=== PATIENT | female | born 1935 | race Caucasian/White ===

== ENCOUNTER 2018-02-10 05:19 | Inpatient (IN) | payer MEDICARE, MEDICAID ==
[~2018-02-10] VITALS: Ht 172.7 cm; Wt 45.5 kg
[~2018-02-10 05:19] MED LIST: APIX2.5T PO; ESOM40CA30 PO; FURO-150 PO; HYDR-565 PO; IRBE150T51 PO
[2018-02-10] MEDS: albuterol 2.5 MG/3 ML nebule CONTNEB PRN ×2 (05:39→10:42)
[2018-02-10 05:46] LABS: BASOPHILS % (AUTO) 0.2 % (0-1); EOSINOPHILS # (AUTO) 0.1 X10'3 (0-0.9); HEMATOCRIT 36.5 % (35.0-45.0); HEMOGLOBIN 12.2 g/dl (12.0-16.0); LYMPHOCYTES # (AUTO) 1.2 X10'3 (1.1-4.8); MEAN CORPUSCULAR HEMOGLOBIN 31.7 PG (27.0-31.0); MEAN CORPUSCULAR HGB CONC 33.5 % (33.0-36.5); MEAN CORPUSCULAR VOLUME 94.6 FL (78-98); MEAN PLATELET VOLUME 8.5 FL (7.4-10.4); MONOCYTES # (AUTO) 0.8 X10'3 (0-0.9); MONOCYTES % (AUTO) 7.7 % (2-12); NEUTROPHILS # (AUTO) 8.9 X10'3 (1.8-7.7); NEUTROPHILS % (AUTO) 80.1 % (42-75); PLATELET COUNT 258 X10'3 (140-440); RED BLOOD COUNT 3.86 X10'6 (4.20-5.60); RED CELL DISTRIBUTION WIDTH 13.4 % (11.5-14.5); WHITE BLOOD COUNT 11.1 X10'3 (4.5-11.0)
[2018-02-10 06:00] LABS: D-DIMER 1.43 MG/L FEU (0-0.50); INR 1.2 INR; PARTIAL THROMBOPLASTIN TIME 27 SECONDS (22-32); PROTHROMBIN TIME 12.1 SECONDS (9.0-12.0)
[2018-02-10] MEDS ORDERED: furosemide 10 MG/1 ML 10ml inj IV ONE (06:00)
[2018-02-10] MEDS ORDERED: nitroGLYCERIN-Tridil 50MG/D5W 250 ML IV PRN (06:00)
[2018-02-10 06:08] LABS: ALANINE AMINOTRANSFERASE 43 U/L (12-78); ALBUMIN 3.6 G/DL (3.4-5.0); ALBUMIN/GLOBULIN RATIO 0.9 (1.1-1.5); ALKALINE PHOSPHATASE 121 IU/L (46-116); ANION GAP 12 (8-16); ASPARTATE AMINO TRANSFERASE 48 U/L (10-37); BILIRUBIN,TOTAL 0.8 MG/DL (0.1-1.0); BLOOD UREA NITROGEN 14 MG/DL (7-18); BUN/CREATININE RATIO 16.5 (6.6-38.0); CALCIUM 9.2 MG/DL (8.5-10.1); CHLORIDE 90 MMOL/L (99-107); CREATININE 0.85 MG/DL (0.40-0.90); GLUCOSE 188 MG/DL (70-104); POTASSIUM 3.8 MMOL/L (3.5-5.1); SODIUM 127 MMOL/L (135-145); TOTAL PROTEIN 7.6 G/DL (6.4-8.2); eGFR 64 ML/MIN
[2018-02-10 07:20] LABS: ABG BASE EXCESS -2.7 mmol/L (-2.0-3.0); ABG HCO3 20.3 mmol/L (22.0-26.0); ABG OXYGEN SATURATION 97.9 % (95-98); ABG PCO2 (T) 30.1 mmHg (32.0-45.0); ABG PH (T) 7.447 (7.350-7.450); ABG PO2 (T) 114.3 mmHg (83-108); ALLEN'S TEST Positive; FCOHb 0.4 % (0.5-1.5); FO2Hb 97.5 % (94-100); MINUTE VOLUME 17 L/min; RESPIRATORY RATE 14 b/min; RESPIRATORY RATE (OBSERVED) 23 b/min; TOTAL HEMOGLOBIN 12.6 G/dl (12.0-16.0)
[2018-02-10] MEDS ORDERED: acetaminophen 325mg tablet PO PRN (09:30)
[2018-02-10] MEDS ORDERED: morphine 4 MG/ML inj SYRINge IV PRN (09:30)
[2018-02-10] MEDS ORDERED: potassium Cl 40MEQ/NS 500ml 500 ML IV PRN ×2 (09:30)
[2018-02-10] MEDS ORDERED: magnesium 4gm in 100ml NS 100 ML IV PRN (09:30)
[2018-02-10] MEDS ORDERED: magnesium 2GM in 50ml NS 50 ML IV PRN (09:30)
[2018-02-10] MEDS ORDERED: magnesium Cl slow-release 64mg tablet PO PRN (09:30)
[2018-02-10] MEDS ORDERED: ondansetron/PF 4mg/2ml inj IV PRN (09:30)
[2018-02-10] MEDS ORDERED: magnesium hydroxide 30ml (MOM) UD suspension PO PRN (09:30)
[2018-02-10] MEDS ORDERED: potassium Cl 20 mEq SR tablet PO PRN (09:30)
[2018-02-10] MEDS ORDERED: mag hydrox/Alum hydrox/simeth 30ml oral suspension PO PRN (09:30)
[2018-02-10] MEDS ORDERED: cloNIDine 0.1 mg tablet PO PRN (09:40)
[2018-02-10] MEDS: nitroGLYCERIN 1gm ointment UD TP SCH ×2 (10:01→16:00)
[2018-02-10 10:56] LABS: ABG BASE EXCESS 0.5 mmol/L (-2.0-3.0); ABG HCO3 22.7 mmol/L (22.0-26.0); ABG OXYGEN SATURATION 93.6 % (95-98); ABG PCO2 (T) 29.4 mmHg (32.0-45.0); ABG PH (T) 7.505 (7.350-7.450); ABG PO2 (T) 70.9 mmHg (83-108); ALLEN'S TEST Positive; FCOHb 0.7 % (0.5-1.5); FLOW 3 L/min; FMetHb 0.3 % (0.3-1.12); FO2Hb 92.7 % (94-100); TOTAL HEMOGLOBIN 12.7 G/dl (12.0-16.0)
[2018-02-10] MEDS ORDERED: HYDROcodone/acetaminophen 10/325mg tab PO SCH (13:46)
[2018-02-10 19:45] VITALS: BP 119/73
[2018-02-10] MEDS ORDERED: LYR25C PO (20:49)
[2018-02-10] MEDS: HYDROcodone/acetaminophen 10/325mg tab PO PRN (20:56)
[2018-02-10] MEDS: apixaban 2.5mg tablet PO SCH (20:56)
[2018-02-10] MEDS: furosemide 10 MG/1 ML 10ml inj IV SCH (20:56)
[2018-02-10 23:00] VITALS: BP 122/68
[2018-02-11] MEDS: nitroGLYCERIN 1gm ointment UD TP SCH ×3 (00:15→16:40)
[2018-02-11] MEDS ORDERED: LYR25C PO (00:55)
[2018-02-11] MEDS ORDERED: METO-411 PO (00:55)
[2018-02-11 03:00] VITALS: BP 112/71
[2018-02-11 06:13] LABS: ALBUMIN 3.1 G/DL (3.4-5.0); ANION GAP 9 (8-16); BLOOD UREA NITROGEN 12 MG/DL (7-18); BUN/CREATININE RATIO 15.2 (6.6-38.0); CALCIUM 8.6 MG/DL (8.5-10.1); CHLORIDE 92 MMOL/L (99-107); CREATININE 0.79 MG/DL (0.40-0.90); GLUCOSE 101 MG/DL (70-104); MAGNESIUM 1.6 MG/DL (1.5-2.4); SODIUM 131 MMOL/L (135-145); TOTAL CARBON DIOXIDE 29.9 MMOL/L (24-32); eGFR 69 ML/MIN
[2018-02-11 06:16] LABS: POTASSIUM 2.8 MMOL/L (3.5-5.1)
[2018-02-11 06:24] LABS: BASOPHILS % (AUTO) 0.2 % (0-1); EOSINOPHILS # (AUTO) 0.1 X10'3 (0-0.9); EOSINOPHILS % (AUTO) 1.1 % (0-6); HEMATOCRIT 31.1 % (35.0-45.0); HEMOGLOBIN 10.4 g/dl (12.0-16.0); LYMPHOCYTES # (AUTO) 1.2 X10'3 (1.1-4.8); LYMPHOCYTES % (AUTO) 18.7 % (21-51); MEAN CORPUSCULAR HEMOGLOBIN 31.5 PG (27.0-31.0); MEAN CORPUSCULAR HGB CONC 33.4 % (33.0-36.5); MEAN CORPUSCULAR VOLUME 94.4 FL (78-98); MEAN PLATELET VOLUME 8.5 FL (7.4-10.4); MONOCYTES # (AUTO) 0.7 X10'3 (0-0.9); MONOCYTES % (AUTO) 10.1 % (2-12); NEUTROPHILS # (AUTO) 4.5 X10'3 (1.8-7.7); NEUTROPHILS % (AUTO) 69.9 % (42-75); PLATELET COUNT 207 X10'3 (140-440); RED BLOOD COUNT 3.29 X10'6 (4.20-5.60); RED CELL DISTRIBUTION WIDTH 13.8 % (11.5-14.5); WHITE BLOOD COUNT 6.5 X10'3 (4.5-11.0)
[2018-02-11] MEDS: apixaban 2.5mg tablet PO SCH ×2 (07:34→20:15)
[2018-02-11] MEDS: losartan 50mg tablet PO SCH (07:34)
[2018-02-11] MEDS: HYDROcodone/acetaminophen 10/325mg tab PO PRN ×4 (07:35→21:52)
[2018-02-11] MEDS: furosemide 10 MG/1 ML 10ml inj IV SCH ×2 (07:38→20:15)
[2018-02-11] MEDS: potassium Cl 20 mEq SR tablet PO PRN ×2 (07:58→13:03)
[2018-02-11] MEDS: K and/or MAG REPLACEMENT MC SCH (08:00)
[2018-02-11 11:00] VITALS: BP 147/82
[2018-02-11 15:00] VITALS: BP 143/92
[2018-02-11] MEDS: potassium Cl 20 mEq SR tablet PO SCH (17:42)
[2018-02-11 19:00] VITALS: BP 138/97
[2018-02-11] MEDS ORDERED: pregabalin 25mg capsule PO SCH (21:00)
[2018-02-11 23:00] VITALS: BP 148/93
[2018-02-12] MEDS: nitroGLYCERIN 1gm ointment UD TP SCH ×2 (00:05→08:59)
[2018-02-12 03:00] VITALS: BP 127/78
[2018-02-12 05:46] LABS: ALBUMIN 3.1 G/DL (3.4-5.0); ANION GAP 9 (8-16); BLOOD UREA NITROGEN 14 MG/DL (7-18); BUN/CREATININE RATIO 17.1 (6.6-38.0); CALCIUM 8.8 MG/DL (8.5-10.1); CHLORIDE 95 MMOL/L (99-107); CREATININE 0.82 MG/DL (0.40-0.90); GLUCOSE 95 MG/DL (70-104); MAGNESIUM 1.7 MG/DL (1.5-2.4); SODIUM 132 MMOL/L (135-145); eGFR 66 ML/MIN
[2018-02-12 06:00] VITALS: BP 124/84
[2018-02-12] MEDS ORDERED: metoprolol succinate 25mg (24-HOUR) SR. Tablet PO SCH (08:00)
[2018-02-12] MEDS: K and/or MAG REPLACEMENT MC SCH (08:00)
[2018-02-12] MEDS: losartan 50mg tablet PO SCH (08:58)
[2018-02-12] MEDS: potassium Cl 20 mEq SR tablet PO SCH (08:59)
[2018-02-12] MEDS: furosemide 10 MG/1 ML 10ml inj IV SCH (08:59)
[2018-02-12] MEDS: apixaban 2.5mg tablet PO SCH (08:59)
[2018-02-12] MEDS: HYDROcodone/acetaminophen 10/325mg tab PO PRN (10:30)
[2018-02-12 11:00] VITALS: BP 124/81
[2018-02-12] MEDS ORDERED: POTA20TA19 PO (11:19)
[2018-02-12] MEDS ORDERED: DILT120C62 PO (11:19)
[2018-02-12] MEDS ORDERED: diltiazem CD 120mg capsule (once-daily) PO SCH (11:35)
== END 2018-02-12 14:15 | disposition home health service (06) | DRG 189 ==
LOC: ER 05:20 → ED HOLD 09:27 → EDBEDREQ 18:33 → PCU 3S 19:45
PROVIDERS: ADMIT Internal Medicine; ATTEND Internal Medicine
PROC: 5A09357 Assistance with Respiratory Ventilation, Less than 24 Consecutive Hours, Continuous Positive Airway Pressure (ICD-10-PCS; principal; 2018-02-10)
DX: J96.21 Acute and chronic respiratory failure with hypoxia (principal); E43 Unspecified severe protein-calorie malnutrition; I50.23 Acute on chronic systolic (congestive) heart failure; E86.1 Hypovolemia; I48.91 Unspecified atrial fibrillation; E87.1 Hypo-osmolality and hyponatremia; Z68.1 Body mass index [BMI] 19.9 or less, adult; I11.0 Hypertensive heart disease with heart failure; Z79.01 Long term (current) use of anticoagulants; E87.6 Hypokalemia; G89.29 Other chronic pain; T50.1X5A Adverse effect of loop [high-ceiling] diuretics, initial encounter; Z95.810 Presence of automatic (implantable) cardiac defibrillator; Z88.6 Allergy status to analgesic agent; Z88.8 Allergy status to other drugs, medicaments and biological substances; Z79.899 Other long term (current) drug therapy; Y92.89 Other specified places as the place of occurrence of the external cause
CPT/HCPCS: 36415; 36600; 71045; 80048; 80053; 82803; 83605; 83735; 83880; 84132; 84484; 85018; 85025; 85379; 85610; 85730; 87040; 87070; 93005; 94640; 94660; 94760; 96365; 96375; 99291; A6257; J1940; J3490

== ENCOUNTER 2019-07-23 11:04 | Inpatient (IN) | payer MEDICARE, MEDICAID ==
[~2019-07-23] VITALS: Ht 165.1 cm; Wt 37.3 kg
[~2019-07-23 11:04] MED LIST changes: +DILT120C62 PO; -ESOM40CA30 PO; +ESOM40CA49 PO; +HYDR-4353 PO; -HYDR-565 PO; +LYR25C PO; +METO-411 PO
[2019-07-23 12:51] LABS: BASOPHILS % (AUTO) 0.1 % (0-1); EOSINOPHILS % (AUTO) 0.1 % (0-6); HEMATOCRIT 36.2 % (35.0-45.0); HEMOGLOBIN 11.9 g/dl (12.0-16.0); LYMPHOCYTES # (AUTO) 0.8 X10'3 (1.1-4.8); LYMPHOCYTES % (AUTO) 6.6 % (21-51); MEAN CORPUSCULAR HEMOGLOBIN 34.2 PG (27.0-31.0); MEAN CORPUSCULAR HGB CONC 32.9 g/dL (33.0-36.5); MEAN CORPUSCULAR VOLUME 103.9 FL (78-98); MEAN PLATELET VOLUME 8.9 FL (7.4-10.4); MONOCYTES # (AUTO) 0.6 X10'3 (0-0.9); MONOCYTES % (AUTO) 4.7 % (2-12); NEUTROPHILS # (AUTO) 10.7 X10'3 (1.8-7.7); NEUTROPHILS % (AUTO) 88.5 % (42-75); PLATELET COUNT 258 X10'3 (140-440); RED BLOOD COUNT 3.48 X10'6 (4.20-5.60); WHITE BLOOD COUNT 12.1 X10'3 (4.5-11.0)
[2019-07-23 12:59] LABS: ALANINE AMINOTRANSFERASE 8 U/L (12-78); ALBUMIN/GLOBULIN RATIO 0.6 (1.1-1.5); ALKALINE PHOSPHATASE 92 IU/L (46-116); ANION GAP 9 (8-16); ASPARTATE AMINO TRANSFERASE 13 U/L (10-37); BILIRUBIN,TOTAL 0.7 MG/DL (0.1-1.0); BLOOD UREA NITROGEN 37 MG/DL (7-18); BUN/CREATININE RATIO 24.3 (6.6-38.0); CALCIUM 7.6 MG/DL (8.5-10.1); CHLORIDE 102 MMOL/L (99-107); CREATININE 1.52 MG/DL (0.40-0.90); GLUCOSE 156 MG/DL (70-104); POTASSIUM 3.3 MMOL/L (3.5-5.1); SODIUM 140 MMOL/L (135-145); TOTAL CARBON DIOXIDE 28.6 MMOL/L (24-32); TOTAL PROTEIN 5.2 G/DL (6.4-8.2); eGFR 32 ML/MIN
[2019-07-23 13:03] LABS: PARTIAL THROMBOPLASTIN TIME 39 SECONDS (22-32)
[2019-07-23 13:08] LABS: MAGNESIUM 1.6 MG/DL (1.5-2.4)
[2019-07-23] MEDS ORDERED: POTA10TA10 PO (13:56)
--- NOTE | 2019-07-23 14:01 | NUR ---
pt out to ct via ivania with taxation inspector
[2019-07-23] MEDS ORDERED: CefTRIAXone 2gm/D5W 50ml 50 ML IV ONE (14:05)
[2019-07-23] MEDS ORDERED: magnesium 2GM in 50ml NS 50 ML IV ONE (14:05)
[2019-07-23] MEDS ORDERED: normal saline 1000ML IV soln IVB ONE (14:05)
[2019-07-23] MEDS ORDERED: magnesium 4gm in 100ml NS 100 ML IV PRN (14:55)
[2019-07-23] MEDS ORDERED: magnesium Cl slow-release 64mg tablet PO PRN (14:55)
[2019-07-23] MEDS ORDERED: mag hydrox/Alum hydrox/simeth 30ml oral suspension PO PRN (14:55)
[2019-07-23] MEDS ORDERED: ondansetron/PF 4mg/2ml inj IV PRN (14:55)
[2019-07-23] MEDS ORDERED: docusate sod 100mg capsule PO PRN (14:55)
[2019-07-23] MEDS ORDERED: potassium CL 10mEq/100ml bag 100 ML IV PRN ×2 (14:55)
[2019-07-23] MEDS ORDERED: acetaminophen 325mg tablet PO PRN (14:55)
[2019-07-23] MEDS ORDERED: ipratropium/albuterol 3ml nebule NEB PRN (14:55)
[2019-07-23] MEDS ORDERED: magnesium 2GM in 50ml NS 50 ML IV PRN (14:55)
[2019-07-23] MEDS ORDERED: potassium Cl 20 mEq SR tablet PO PRN ×2 (14:55)
[2019-07-23 15:10] LABS: CLARITY,URINE CLEAR (Clear); COLOR,URINE YELLOW (Yellow); GLUCOSE, URINE NEGATIVE (Neg); KETONES,URINE NEGATIVE (Neg); LEUKOCYTE ESTERASE ,URINE NEGATIVE (Neg); NITRITES, URINE NEGATIVE (Neg); OCCULT BLOOD,URINE NEGATIVE (Neg); PH,URINE 5.5 (4.8-8.0); PROTEIN,URINE NEGATIVE (Neg); UROBILINOGEN,URINE 0.2 E.U/dL (0.2-1.0)
[2019-07-23 15:11] LABS: UA COLLECTION TYPE STRAIGHT CATH
[2019-07-23] MEDS: CefTRIAXone/D5W-Rocephin 1gm 50 ML IV SCH (16:02)
[2019-07-23] MEDS: ipratropium/albuterol 3ml nebule NEB SCH ×2 (16:30→21:03)
--- NOTE | 2019-07-23 17:06 | NUR ---
Received report from CHRISTINE Benitez. Patient will be going to room 350 A.
--- NOTE | 2019-07-23 17:30 | NUR ---
Patient to room 350A. Patient alert and very painful at this time. No pain medications ordered. MD paged for pain management. Patient tucked into bed, call light in reach, nonslip socks on patient, BLL. Daughter bedside. Phone number in [facility].
[2019-07-23] MEDS ORDERED: HYDROcodone/acetaminophen 10/325mg tab PO PRN (18:10)
--- NOTE | 2019-07-23 18:10 | NUR ---
Problems reprioritized. Patient report given, questions answered & plan of care reviewed with CHRISTINE Rodriguez.
[2019-07-23] MEDS: HYDROcodone/acetaminophen 5mg/325mg tablet PO PRN (18:14)
[2019-07-23 19:00] VITALS: BP 110/53
[2019-07-23] MEDS: furosemide 20MG tablet PO SCH (20:47)
[2019-07-23] MEDS: lactobacillus rhamnosus 10,000 MMU CELLS/CAPSULE PO SCH (20:47)
[2019-07-23] MEDS: apixaban 2.5mg tablet PO SCH (20:47)
[2019-07-24] MEDS: HYDROcodone/acetaminophen 5mg/325mg tablet PO PRN (06:08)
[2019-07-24 06:10] LABS: BASOPHILS % (AUTO) 0.2 % (0-1); EOSINOPHILS % (AUTO) 0.1 % (0-6); HEMATOCRIT 39.6 % (35.0-45.0); HEMOGLOBIN 13.2 g/dl (12.0-16.0); LYMPHOCYTES # (AUTO) 1.1 X10'3 (1.1-4.8); LYMPHOCYTES % (AUTO) 11.5 % (21-51); MEAN CORPUSCULAR HEMOGLOBIN 34.6 PG (27.0-31.0); MEAN CORPUSCULAR HGB CONC 33.5 g/dL (33.0-36.5); MEAN CORPUSCULAR VOLUME 103.3 FL (78-98); MEAN PLATELET VOLUME 9.3 FL (7.4-10.4); MONOCYTES # (AUTO) 0.6 X10'3 (0-0.9); MONOCYTES % (AUTO) 6.1 % (2-12); NEUTROPHILS # (AUTO) 8.1 X10'3 (1.8-7.7); NEUTROPHILS % (AUTO) 82.1 % (42-75); PLATELET COUNT 271 X10'3 (140-440); RED BLOOD COUNT 3.83 X10'6 (4.20-5.60); RED CELL DISTRIBUTION WIDTH 15.2 % (11.5-14.5); WHITE BLOOD COUNT 9.9 X10'3 (4.5-11.0)
[2019-07-24 06:22] LABS: ALANINE AMINOTRANSFERASE 11 U/L (12-78); ALBUMIN 2.2 G/DL (3.4-5.0); ALBUMIN/GLOBULIN RATIO 0.6 (1.1-1.5); ALKALINE PHOSPHATASE 101 IU/L (46-116); ANION GAP 10 (8-16); ASPARTATE AMINO TRANSFERASE 26 U/L (10-37); BILIRUBIN,TOTAL 0.4 MG/DL (0.1-1.0); BLOOD UREA NITROGEN 36 MG/DL (7-18); BUN/CREATININE RATIO 26.7 (6.6-38.0); CALCIUM 8.1 MG/DL (8.5-10.1); CHLORIDE 103 MMOL/L (99-107); CHOL/HDL RATIO 1.9 (0.00-4.99); CHOLESTEROL 131 MG/DL (0-200); CREATININE 1.35 MG/DL (0.40-0.90); GLUCOSE 96 MG/DL (70-104); HDL CHOLESTEROL 68 MG/DL (35-60); LDL CHOLESTEROL 26 MG/DL (50-100); MAGNESIUM 2.1 MG/DL (1.5-2.4); SODIUM 142 MMOL/L (135-145); TOTAL CARBON DIOXIDE 29.1 MMOL/L (24-32); TOTAL PROTEIN 5.9 G/DL (6.4-8.2); TRIGLYCERIDES 112 MG/DL (20-135); eGFR 37 ML/MIN
[2019-07-24 06:44] LABS: POTASSIUM 2.8 MMOL/L (3.5-5.1)
--- NOTE | 2019-07-24 06:50 | NUR ---
Patient in room [facility] 350. I have received report from CHRISTINE Rodriguez and had the opportunity to ask questions and assume patient care.
--- NOTE | 2019-07-24 06:53 | NUR ---
Problems reprioritized. Patient report given, questions answered & plan of care reviewed with SAMANTHA. Addendum: 07/24/19 at 0654 by Bartolome Lovett RN Amended: Links added.
[2019-07-24 07:00] VITALS: BP 105/52
--- NOTE | 2019-07-24 07:15 | NUR ---
Notified Dr. Tinsley of patient's critical K 2.8-MD aware. PT has oral replacements ordered; will replace per protocol.
[2019-07-24] MEDS ORDERED: K and/or MAG REPLACEMENT MC SCH (08:00)
[2019-07-24] MEDS ORDERED: IRBESARTAN PO SCH (08:00)
[2019-07-24] MEDS: furosemide 20MG tablet PO SCH ×2 (08:03→21:58)
[2019-07-24] MEDS: losartan 50mg tablet PO SCH (08:03)
[2019-07-24] MEDS: lactobacillus rhamnosus 10,000 MMU CELLS/CAPSULE PO SCH ×2 (08:03→21:59)
[2019-07-24] MEDS: apixaban 2.5mg tablet PO SCH ×2 (08:04→21:57)
[2019-07-24] MEDS: CefTRIAXone/D5W-Rocephin 1gm 50 ML IV SCH (08:39)
[2019-07-24] MEDS ORDERED: Potassium Cl 40 MEQ in NS 500 ML IV ONE (08:50)
--- NOTE | 2019-07-24 09:18 | NUR ---
unable o get sp02 on 2lpm 02 Addendum: 07/24/19 at 1719 by Julia Perez RT Amended: Links added.
[2019-07-24] MEDS: ipratropium/albuterol 3ml nebule NEB SCH ×3 (09:29→20:21)
[2019-07-24] MEDS ORDERED: pneumococcal 23-VAL P-sac vacc 25 mcg/0.5ml vial IMVAC ONE (10:00)
--- NOTE | 2019-07-24 10:59 | NUR ---
Dr Tinsley called and asked me to retake patients blood pressure. Per Automatic cuff patients VS as follows, 36.2C temp, HR 128 BP 79/59 SPO2 98% 2L RR 16 Pain 3/10 taken with Small cuff. Manual 70/50, retook with automatic cuff 86/56 ( map 66) left arm HR 92. Per Dr Tinsley keep an eye on patient please and he has requested a consult on patient with Aminata Reese. Primary RN Tena armendariz and batch freezerCHRISTINE armendariz
[2019-07-24 11:00] VITALS: BP 91/52
--- NOTE | 2019-07-24 15:11 | NUR ---
PRESSURE ULCER EDUCATION: DEFINITION: A pressure ulcer is an area of skin that breaks down when you stay in one position too long. The constant pressure against the skin reduces the blood flow to that area and the affected tissue dies. CAUSES: "Being bedridden or in a wheelchair "Fragile skin "Having a chronic condition, such as diabetes or vascular disease "Inability to move certain parts of your body without assistance "Older age "Incontinence of urine or stool SYMPTOMS: "A reddened area that DOES NOT turn white when pressed on - this can be the beginning of a pressure ulcer "A blister, deep sore or a crater - these can be advanced pressure ulcers FIRST AID: "Relieve the pressure on this area "Keep the area clean and dry "Call your primary doctor if you see any of the above symptoms "DO NOT massage the area "DO NOT use a donut shaped or ring shaped pillow- these actually interfere with the blood flow and cause complications PREVENTION: "Check for pressure ulcers everyday "Change position at least every two hours to relieve pressure "Use items that help relieve pressure- pillows, sheepskin, foam padding, and powders. "Keep skin clean and dry "Eat healthy well balanced meals "Exercise daily IF YOU SEE ANY OF THESE SYMPTOMS WHILE IN THE HOSPITAL - TELL YOUR NURSE IMMEDIATELY. IF YOU SEE ANY OF THESE SYMPTOMS WHILE AT HOME OR HAVE ANY QUESTIONS OR CONCERNS ABOUT PRESSURE ULCERS - CALL YOUR PRIMARY DOCTOR IMMEDIATELY. Addendum: 07/24/19 at 1511 by Ida Stahl RN Amended: Links added.
--- NOTE | 2019-07-24 15:11 | NUR ---
unable to get sp02 on 2lpm 02 Addendum: 07/24/19 at 1719 by Julia Perez RT Amended: Links added.
--- NOTE | 2019-07-24 16:10 | NUR ---
Malnutrition consult: Pt with no significant reliable wt hx as most recent scaled wt is 61.6 kg taken September 2014 using a standing scale. Current documented wt is 37.27 kg taken with gurney scale resulting in extremely low BMI of 13.7. Multiple attempted visits with patient at bedside however pt unavailable. Pt currently on heart healthy diet with documented 25% PO intake x 1 meal not meeting nutrient needs. Per H&P pt reports low appetite for approximately 3 weeks. Likely pt with suboptimal PO intake [employer]OLDING [employer]. Per ED report pt appears emaciated. Pt presents with no edema however severe weakness. Pt currently meets criteria for malnutrition, MD notified. Recommend Ensure Enlive TID to provide additional kcal/protein, to be sent pending MD verification in [place]. Pt admit with generalized weakness possibly secondary to infection with infiltrates seen in left lower lobe on chest x-ray and a mildly elevated lactic acid per H&P. Pt with low Osorio score of 12, per [facility] notes pt with DTI to coccyx with a small open area d/t moisture damage as pt is incontinent of urine and stool at this time. LBM 9/. Will continue to follow. Recommendations: 1) Continue heart healthy diet 2) Ensure Enlive TID, pending MD verification 3) Encourage PO intake 4) Routine bowel care 5) Wt per rx Addendum: 07/24/19 at [address] Amended: Links added.
[2019-07-24] MEDS: Potassium Cl inj 20 MEQ in normal saline 1000ml 990 ML IV SCH (17:29)
[2019-07-24] MEDS ORDERED: lactose-reduced food (Ensure Enlive) - 237ml bottle PO SCH (18:00)
[2019-07-24 18:30] VITALS: BP 98/66
--- NOTE | 2019-07-24 18:52 | NUR ---
Problems reprioritized. Patient report given, questions answered & plan of care reviewed with CHRISTINE Rodriguez.
[2019-07-24] MEDS ORDERED: LORazepam 0.5 MG tablet PO ONE (19:00)
[2019-07-24 20:00] VITALS: BP 98/66
[2019-07-24 22:30] VITALS: BP 83/64
--- NOTE | 2019-07-24 22:30 | NUR ---
DR. PASTRANA NOTIFIED MRS. REAL IS IN [place] @ 163. DAVID VITALY STATED THE PLAN WAS TO GENTLY HYDRATE HER. DR. PASTRANA ORDERED NS 500CC/ 2HRS PLUS CARDIZEM 30 MG PO ONCE. RATE CORRECTED NICELY TO 110's
[2019-07-24] MEDS ORDERED: normal saline 500ml IV soln 500 ML IV ONE (22:40)
[2019-07-24] MEDS ORDERED: diltiazem 30mg tablet PO ONE (22:40)
[2019-07-25] VITALS: BP 83/64
[2019-07-25] MEDS: Potassium Cl inj 20 MEQ in normal saline 1000ml 990 ML IV SCH (01:16)
[2019-07-25 05:11] LABS: HEMATOCRIT 40.5 % (35.0-45.0); HEMOGLOBIN 13.3 g/dl (12.0-16.0); MEAN CORPUSCULAR HEMOGLOBIN 34.4 PG (27.0-31.0); MEAN CORPUSCULAR HGB CONC 32.7 g/dL (33.0-36.5); MEAN CORPUSCULAR VOLUME 105.3 FL (78-98); MEAN PLATELET VOLUME 9.6 FL (7.4-10.4); PLATELET COUNT 137 X10'3 (140-440); RED BLOOD COUNT 3.85 X10'6 (4.20-5.60); RED CELL DISTRIBUTION WIDTH 15.9 % (11.5-14.5)
--- NOTE | 2019-07-25 06:30 | NUR ---
Patient in room [facility] 350. I have received report from CHRISTINE Rodriguez and had the opportunity to ask questions and assume patient care.
[2019-07-25 06:47] LABS: PLATELET ESTIMATE DECREASED; TOTAL CELLS COUNTED 100
[2019-07-25 06:48] LABS: BURR CELLS 1+
--- NOTE | 2019-07-25 06:50 | NUR ---
Problems reprioritized. Patient report given, questions answered & plan of care reviewed with SAMANTHA. Addendum: 07/25/19 at 0651 by Bartolome Lovett RN Amended: Links added.
[2019-07-25 07:13] LABS: ALANINE AMINOTRANSFERASE 77 U/L (12-78); ALBUMIN 1.9 G/DL (3.4-5.0); ALBUMIN/GLOBULIN RATIO 0.6 (1.1-1.5); ALKALINE PHOSPHATASE 104 IU/L (46-116); ANION GAP 17 (8-16); ASPARTATE AMINO TRANSFERASE 199 U/L (10-37); BILIRUBIN,TOTAL 0.7 MG/DL (0.1-1.0); BLOOD UREA NITROGEN 39 MG/DL (7-18); BUN/CREATININE RATIO 19.7 (6.6-38.0); CALCIUM 8.1 MG/DL (8.5-10.1); CHLORIDE 106 MMOL/L (99-107); CREATININE 1.98 MG/DL (0.40-0.90); GLUCOSE 108 MG/DL (70-104); MAGNESIUM 2.4 MG/DL (1.5-2.4); SODIUM 143 MMOL/L (135-145); TOTAL CARBON DIOXIDE 20.1 MMOL/L (24-32); TOTAL PROTEIN 5.3 G/DL (6.4-8.2); eGFR 24 ML/MIN
[2019-07-25 07:16] LABS: POTASSIUM 6.2 MMOL/L (3.5-5.1)
--- NOTE | 2019-07-25 07:19 | NUR ---
PAGED Dr. Tinsley notifying him of patient's critical K of 6.2. MD aware, awaiting further orders.
[2019-07-25] MEDS ORDERED: albuterol 2.5 MG/3 ML nebule NEB STA (07:34)
[2019-07-25] MEDS ORDERED: calcium chloride 100 MG/1 ML inj IV ONE (07:35)
[2019-07-25] MEDS ORDERED: sodium bicarbonate (8.4%) 1 mEq/ml syringe IV ONE (07:35)
[2019-07-25] MEDS ORDERED: insulin regular, human 10 units/0.1 ml syringe SQ ONE ×2 (07:35→08:45)
[2019-07-25] MEDS ORDERED: dextrose 50%-water 50ml dispensing syringe IV ONE (07:35)
[2019-07-25 08:00] VITALS: BP 125/90
[2019-07-25] MEDS: losartan 50mg tablet PO SCH (08:00)
[2019-07-25] MEDS: furosemide 20MG tablet PO SCH ×2 (08:00→20:00)
[2019-07-25] MEDS: apixaban 2.5mg tablet PO SCH ×2 (08:00→20:00)
[2019-07-25] MEDS: lactobacillus rhamnosus 10,000 MMU CELLS/CAPSULE PO SCH ×2 (08:00→20:00)
[2019-07-25] MEDS: CefTRIAXone/D5W-Rocephin 1gm 50 ML IV SCH (08:00)
--- NOTE | 2019-07-25 08:00 | NUR ---
Patient BP reading high, upon re-check BP now 120/90. Called telemetry chamber to check HR and rhythm, telephoto installer reports HR in 90s-100s. Daughter expressing to me concerns about patient feeling too cold. Called Dr. Tinsley to clarify orders for pt's high potassium and express to him concerns about his pt. Asked if he would like to come assess his patient. states "he is admitting a patient but will be up as soon as done."
[2019-07-25] MEDS ORDERED: calcium chloride inj. 1,000 MG in normal saline 100ml IV soln 100 ML IV ONE (08:20)
[2019-07-25] MEDS: ipratropium/albuterol 3ml nebule NEB SCH ×3 (09:00→21:00)
[2019-07-25 09:09] LABS: ALANINE AMINOTRANSFERASE 85 U/L (12-78); ALBUMIN 1.9 G/DL (3.4-5.0); ALBUMIN/GLOBULIN RATIO 0.5 (1.1-1.5); ALKALINE PHOSPHATASE 114 IU/L (46-116); ANION GAP 20 (8-16); ASPARTATE AMINO TRANSFERASE 218 U/L (10-37); BILIRUBIN,TOTAL 0.9 MG/DL (0.1-1.0); BLOOD UREA NITROGEN 39 MG/DL (7-18); BUN/CREATININE RATIO 21.7 (6.6-38.0); CALCIUM 8.3 MG/DL (8.5-10.1); CHLORIDE 106 MMOL/L (99-107); GLUCOSE 62 MG/DL (70-104); SODIUM 141 MMOL/L (135-145); TOTAL CARBON DIOXIDE 15.5 MMOL/L (24-32); TOTAL PROTEIN 5.5 G/DL (6.4-8.2); eGFR 27 ML/MIN
[2019-07-25] MEDS: sodium bicarbonate inj. 50 ML in dextrose 5% water 500ml 500 ML IV ONE ×2 (09:40→10:56)
--- NOTE | 2019-07-25 09:40 | NUR ---
Checked pt's blood glucose before giving Regular insulin and notified Dr. Tinsley that blood glucose 58. Per MD will proceed with D50 first, then 5 units of regular insulin as ordered.
--- NOTE | 2019-07-25 10:00 | NUR ---
ICU nurse and respiratory in patient room, unable to get accurate oxygen saturation level on pt, due to poor circulation. Pt's BP stable, HR stable, 128/[address] Tinsley that unable to get O2 reading. Dr. Tinsley here to assess pt and ordered ABG and is aware.
[2019-07-25 11:00] VITALS: BP 136/42
--- NOTE | 2019-07-25 11:32 | NUR ---
F/u for malnutrition education: Poor documentation of PO intake, only dinner on 07/23 and 07/24 has been documented at 25% PO intake. Still pending MD verification of ONS. Pt documented as A/O x 2 and communication is more difficult today per physical assessment. Recommend Ensure pudding BIDLD until able to visit pt to discuss food preferences, d/w dietary. Will continue to follow. Recommendations: 1) Continue heart healthy diet 2) Ensure Enlive TID, pending MD verification 3) Ensure pudding BIDLD 4) Encourage PO intake 5) Routine bowel care Addendum: 07/25/19 at [address] Amended: Links added.
--- NOTE | 2019-07-25 18:45 | NUR ---
shift change report given by CHRISTINE Madsen; Daughter at beside asking for something to help her relax; pt attempting to pull off venti mask; informed in report of earlier events & Dr Tinsley discussing comfort care with the daughter
--- NOTE | 2019-07-25 18:54 | NUR ---
Problems reprioritized. Patient report given, questions answered & plan of care reviewed with Aby RN.
[2019-07-25] MEDS ORDERED: LORazepam 0.5 MG tablet PO PRN (18:55)
[2019-07-25] MEDS ORDERED: LORazepam 2 mg/ml vial IV PRN (18:55)
[2019-07-25 19:30] VITALS: BP 100/73
--- NOTE | 2019-07-25 19:45 | NUR ---
pt given at
--- NOTE | 2019-07-25 19:45 | NUR ---
ativan given at 1915; pt more calm & relaxed; repositioned for comfort; pt's son to come to relieve daughter
[2019-07-25] MEDS ORDERED: morphine 4 MG/ML inj SYRINge IV PRN (20:35)
--- NOTE | 2019-07-25 20:45 | NUR ---
son at bedside; daughter will plan to go home & son will stay; family verbalizes request not to do any more labs & only to make her comfortable; questions answered; emotional support given
--- NOTE | 2019-07-26 00:30 | NUR ---
received word that pt's hear rate had decreased to 40's; not breathing & unable to auscultate heart beat; unable to get VS's; code blue called (informed of response team of pt's limited code states)
--- NOTE | 2019-07-26 00:45 | NUR ---
Dr Barcenas responded & pronounced at 0043; son at bedside & states he'll call his sister
--- NOTE | 2019-07-26 01:20 | NUR ---
[facility] [employer] her to burr picker pt; (son states his sister will not come in); belongings taken by son
== END 2019-07-26 00:43 | disposition expired | DRG 871 ==
LOC: ER 11:05 → SUR 3N 17:19 → CMPBEDREQ 19:58 → SUR 3N 07-25 18:36
PROVIDERS: ADMIT Family Medicine; ATTEND Family Medicine
DX: A41.9 Sepsis, unspecified organism (principal); J18.1 Lobar pneumonia, unspecified organism; I48.92 Unspecified atrial flutter; I50.22 Chronic systolic (congestive) heart failure; N17.9 Acute kidney failure, unspecified; I13.0 Hypertensive heart and chronic kidney disease with heart failure and stage 1 through stage 4 chronic kidney disease, or unspecified chronic kidney disease; I48.2 Chronic atrial fibrillation; E03.9 Hypothyroidism, unspecified; L89.159 Pressure ulcer of sacral region, unspecified stage; E78.5 Hyperlipidemia, unspecified; I95.9 Hypotension, unspecified; N18.9 Chronic kidney disease, unspecified; G89.29 Other chronic pain; R74.0 Nonspecific elevation of levels of transaminase and lactic acid dehydrogenase [LDH]; E83.42 Hypomagnesemia; E86.0 Dehydration; E87.6 Hypokalemia; I46.9 Cardiac arrest, cause unspecified; M79.7 Fibromyalgia; Z79.01 Long term (current) use of anticoagulants; Z85.3 Personal history of malignant neoplasm of breast; Z90.12 Acquired absence of left breast and nipple; Z91.81 History of falling; Z95.0 Presence of cardiac pacemaker; Z88.8 Allergy status to other drugs, medicaments and biological substances; Z79.899 Other long term (current) drug therapy; E87.5 Hyperkalemia
CPT/HCPCS: 36415; 70450; 71045; 72128; 72131; 80053; 80061; 81003; 82948; 83605; 83735; 84132; 84145; 84439; 84443; 84484; 85025; 85610; 85730; 87040; 87081; 93005; 93306; 94640; 94760; 96365; 96368; 99285; G0378; J0696; J1815; J2060; J3475; J3480; J7030; J7040; J7060